=== PATIENT | male | born 1980 | race Caucasian/White ===

== ENCOUNTER 2016-11-28 01:58 | Emergency (ER) | payer OTHER ==
--- NOTE | 2016-11-28 02:37 | PDOC ---
History of Present Illness - General History Source: Patient Exam Limitations: No Limitations - History of Present Illness Initial Comments: 11/28/16 02:56 The patient is a 36 year old male with no significant past medical history who presents to the ED for palpitations and feeling anxious prior to arrival. Patient reports he was in his usual state of health when she felt like his heart was racing and became concern because he felt like his blood sugar and blood pressure is high. States he is feeling better now, at time of evaluation. Admits to being a social alcohol drinker and last time he had alcohol was 4 days ago. The patient denies fever, chills, cough, SOB, chest pain, and palpitations. The patient denies abdominal pain, nausea, vomiting, and diarrhea. Allergies: NKDA Social History: Social alcohol use. No tobacco or drug use reported. Family History: Mother recently from a [place] Past Surgical History: None reported PCP: None reported <Kenyetta Adams - Last Filed: 11/28/16 03:13> - General History Source: Patient <John Enrique - Last Filed: 11/28/16 03:57> - General Chief Complaint: Blood Pressure Problem Stated Complaint: BLOOD PRESSURE PROBLEM Time Seen by Provider: 11/28/16 02:33 Past History <Kenyetta Adams - Last Filed: 11/28/16 03:13> - Psycho/Social/Smoking Cessation Hx Suicidal Ideation: No Smoking History: Never smoked Have you smoked in the past 12 months: No Information on smoking cessation initiated: No Hx Alcohol Use: Yes Drug/Substance Use Hx: No <John Enrique - Last Filed: 11/28/16 03:57> - Past Medical History Allergies/Adverse Reactions: Allergies Allergy/AdvReac Type Severity Reaction Status Date / Time No Known Allergies Allergy Verified 11/28/16 02:32 Home Medications: Ambulatory Orders NK [No Known Home Medication] 11/28/16 Review of Systems - Review of Systems Able to Perform ROS?: Yes Comments:: 11/28/16 02:56 CONSTITUTIONAL: Absent: fever, no chills, no fatigue EYES: Absent: visual changes ENT: Absent: ear pain, no sore throat CARDIOVASCULAR: +palpitations Absent: chest pain RESPIRATORY: Absent: cough, no SOB GI: Absent: abdominal pain, no nausea, no vomiting, no constipation, no diarrhea GENITOURINARY: Absent: dysuria, no frequency, no hematuria MUSCULOSKELETAL: Absent: back pain, no arthralgia, no myalgia SKIN: Absent: rash NEURO: Absent: headache PSYCHIATRIC: +anxiety Absent: depression, suicidal or homicidal ideation, hallucinations. <AngieKenyetta - Last Filed: 11/28/16 03:13> *Physical Exam - Vital Signs Last Vital Signs Temp Pulse Resp BP Pulse Ox 98.3 F 84 18 149/85 98 11/28/16 02:30 11/28/16 02:30 11/28/16 02:30 11/28/16 02:30 11/28/16 02:30 - Physical Exam Comments: 11/28/16 02:56 GENERAL: Well-appearing, well-nourished. No apparent distress. HEENT: Normocephalic, atraumatic. PERRL, EOM intact. CARDIOVASCULAR: Normal S1, S2. Regular rate and rhythm. PULMONARY: Clear to auscultation bilaterally. ABDOMEN: Soft, non-distended, non-tender. EXTREMITIES: Normal ROM in all four extremities. No gross deformities. SKIN: Warm, dry. No rash NEUROLOGICAL: No focal neurological deficits. <AngieKenyetta - Last Filed: 11/28/16 03:13> - Vital Signs Last Vital Signs Temp Pulse Resp BP Pulse Ox 98.3 F 84 18 149/85 98 11/28/16 02:30 11/28/16 02:30 11/28/16 02:30 11/28/16 02:30 11/28/16 02:30 <John Enrique - Last Filed: 11/28/16 03:57> Heart Score/ECG Review - ECG Impressions Comment:: 11/28/16 03:13 NSR @82bpm <Kenyetta Adams - Last Filed: 11/28/16 03:13> ED Treatment Course - LABORATORY CBC & Chemistry Diagram: 11/28/16 02:50 11/28/16 02:50 <Kenyetta Adams - Last Filed: 11/28/16 03:13> - LABORATORY CBC & Chemistry Diagram: 11/28/16 02:50 11/28/16 02:50 <John Enrique - Last Filed: 11/28/16 03:57> Medical Decision Making - Medical Decision Making 11/28/16 03:56 Dr. Enrique: The scribe's documentation has been prepared under my direction and personally reviewed by me in its entirery. I confirm that the note above accurately reflects all work, treatment, procedures, and medical decision making performed by me. <John Enrique - Last Filed: 11/28/16 03:57> *DC/Admit/Observation/Transfer - Attestations Scribe Attestion: 11/28/16 02:56 Documentation prepared by Kenyetta Adams, acting as administrative medical director for John Enrique MD/DO. <Kenyetta Adams - Last Filed: 11/28/16 03:13> - Discharge Dispostion Admit: No <John Enrique - Last Filed: 11/28/16 03:57> Diagnosis at time of Disposition: Palpitations - Discharge Dispostion Disposition: HOME Condition at time of disposition: Stable - Referrals Referrals: Oli Carvajal MD [Staff Physician] - - Patient Instructions Printed Discharge Instructions: DI for Palpitations Print Language: KAZAKH
[2016-11-28 02:50] VITALS: BMI 25.4
[2016-11-28 03:07] LABS: BASOPHIL 0.3 % (0-2.0); MCH 29.7 pg (25.7-33.7); MCHC 33.4 g/dl (32.0-35.9); MEAN PLT VOLUME 7.6 fl (7.5-11.1); NEUTROPHILS 58.7 % (42.8-82.8); PLATELET COUNT 259 K/MM3 (134-434); RDW 13.7 % (11.9-15.9); WHITE BLOOD COUNT 7.2 K/mm3 (4.0-10.0)
[2016-11-28 03:31] LABS: TROPONIN I < 0.02 ng/ml (0.00-0.05)
[2016-11-28 03:48] LABS: ALBUMIN 3.6 g/dl (3.4-5.0); ANION GAP 13 (8-16); BILIRUBIN,TOTAL 0.4 mg/dL (0.2-1.0); CALCIUM 8.3 mg/dL (8.5-10.1); CO2 24 mmol/L (21-32); COCKROFT - GAULT 113.05; CREATININE 1.1 mg/dL (0.7-1.3); GLUCOSE,RANDOM 102 mg/dL (74-106); SGOT/AST 17 U/L (15-37); SGPT/ALT 23 U/L (12-78); TOT PROT 6.9 g/dl (6.4-8.2)
[2016-11-28 03:49] LABS: ALK PHOS 88 U/L (45-117); MAGNESIUM 2.4 mg/dL (1.8-2.4)
[2016-11-28 06:14] VITALS: BP 140/80; PULSE 79; TEMP 98
--- NOTE | 2016-11-28 14:43 | EKG ---
Test Reason : Blood Pressure : / mmHG Vent. Rate : 082 BPM Atrial Rate : 082 BPM P-R Int : 172 ms QRS Dur : 112 ms QT Int : 368 ms P-R-T Axes : 072 057 059 degrees QTc Int : 429 ms NORMAL SINUS RHYTHM NORMAL ECG NO PREVIOUS ECGS AVAILABLE Confirmed by ILANA LUJAN, IDALIA ([id number]) on 11/28/2016 2:43:15 PM Referred By: Confirmed By:IDALIA PRECIADO MD
== END 2016-11-28 04:03 | disposition home or self-care (01) ==
LOC: JER 01:58
DX: R00.2 Palpitations (principal)
CPT/HCPCS: 36415; 80053; 82550; 82553; 83690; 83735; 84484; 85025; 93005; 93010; 99282-25

== ENCOUNTER 2024-01-27 17:00 | Emergency (ER) | payer SELFPAY ==
[2024-01-27 17:26] VITALS: BP 139/91; PULSE 98; RESP 18; TEMP 98.3; BMI 24.9
[2024-01-27] MEDS ORDERED: KETOROLAC TROMETHAMINE 30 MG/1 ML VIAL ONE (18:31)
[2024-01-27] MEDS ORDERED: LIDOCAINE 4% PATCH TP ONE (18:31)
[2024-01-27] MEDS: KETOROLAC TROMETHAMINE 30 MG/1 ML VIAL IM ONE (18:53)
[2024-01-27] MEDS: LIDOCAINE 4% PATCH TP ONE (18:54)
[2024-01-27] MEDS ORDERED: LIDOCAINE PATCH REMOVAL MC SCH (22:00)
== END 2024-01-27 19:07 | disposition home or self-care (01) ==
LOC: JERFT 17:00
PROC: 3E0133Z Introduction of Anti-inflammatory into Subcutaneous Tissue, Percutaneous Approach (ICD-10-PCS; principal; 2024-01-27)
DX: S89.91XA Unspecified injury of right lower leg, initial encounter (principal); X50.1XXA Overexertion from prolonged static or awkward postures, initial encounter; Y93.39 Activity, other involving climbing, rappelling and jumping off
CPT/HCPCS: 73562-TC-RT-FY; 99284-25